=== PATIENT | male | born 1955 | race Caucasian/White ===

== ENCOUNTER 2016-12-09 13:50 | Inpatient (IN) | payer OTHER ==
[2016-12-09] VITALS (505 sets, daily range): BP systolic 108–166; BP diastolic 78–92; PULSE 70–71; TEMP 97.8–98.7; O2SAT 77–100
[~2016-12-09] VITALS: Ht 180.3 cm; Wt 142.7 kg
[~2016-12-09 13:50] MED LIST: ASPIRIN E.C. 8181 MG PO; BP MED; CORDARONE200 MG/TAB PO; COREG 25MG25 MG/TAB PO; COUMADIN5 MG PO; DILTIAZEM HCL60 M1 PO; FISH OIL CONC1000 MG PO; LIPITOR 40MG TA40 MG PO; LOPRESSOR 550 MG/TAB PO; LOPRESSOR100 MG PO; MICARDIS20 MG PO; NEURONTIN600 MG/TAB PO; NICODERM C21 MG/PATC TOP; PERCOCET 325 MG1 TA2 PO; PLAVIX 75MG TAB75 MG PO; PRADAXA 150MG150 MG PO; PRAVACHOL 40MG40 MG PO; PRINIVIL20 MG PO; PROVENTIL0.09 MG/A1 IH; TIKOSYN0.5 MG PO; VASOTEC 10M10 MG/TAB PO; ZEBETA10 MG PO; ZIAC 10/6.25M1 UDTAB PO
[2016-12-10] VITALS (1178 sets, daily range): BP systolic 101–145; BP diastolic 58–88; PULSE 69–84; TEMP 97.4–98.6; O2SAT 52–100
[2016-12-10 06:07] LABS: BASO % 0.1 % (0.0-2.0); GRAN # 12.8 (1.4-6.5); GRAN % 90.5 % (42.2-75.2); HEMATOCRIT 50.2 % (42.0-52.0); HEMOGLOBIN 17.3 g/dl (13.5-18.0); LYMPH # 1.1 (1.2-3.4); LYMPH % 7.5 % (20.0-51.0); MEAN CELL VOLUME 102 fl (80.0-100.0); MEAN CORPUSCULAR HEMOGLOBIN 35 pg (27.0-31.0); MEAN CORPUSCULAR HGB CONC 35 g/dl (33.0-37.0); MEAN PLATELET VOLUME 10.6 fl (7.4-10.4); MONO # 0.2 (0.1-0.6); MONO % 1.3 % (1.7-9.3); PLATELET COUNT 174 K/mm3 (130-400); RED BLOOD COUNT 4.92 M/mm3 (4.20-5.60); REDCELL DISTRIBUTION WIDTH-CV 13.3 % (11.5-14.5); WHITE BLOOD COUNT 14.2 K/mm3 (4.8-10.8)
[2016-12-10 06:24] LABS: CALCIUM 9.5 mg/dL (8.4-10.2); CREATININE, serum 1.27 mg/dL (0.66-1.25); POTASSIUM 4.4 mmol/L (3.4-5.0)
[2016-12-10] MEDS ORDERED: LASIX 40MG TABL40 MG PO (15:52)
[2016-12-11] VITALS (589 sets, daily range): BP systolic 100–141; BP diastolic 58–100; PULSE 69–76; TEMP 97.4–98.1; O2SAT 68–100
[2016-12-11 07:01] LABS: BASO % 0.1 % (0.0-2.0); GRAN # 18.5 (1.4-6.5); GRAN % 92.3 % (42.2-75.2); LYMPH # 0.9 (1.2-3.4); LYMPH % 4.5 % (20.0-51.0); MEAN CELL VOLUME 103 fl (80.0-100.0); MEAN CORPUSCULAR HGB CONC 34 g/dl (33.0-37.0); MEAN PLATELET VOLUME 11.1 fl (7.4-10.4); MONO # 0.5 (0.1-0.6); MONO % 2.3 % (1.7-9.3); PLATELET COUNT 190 K/mm3 (130-400); RED BLOOD COUNT 5.21 M/mm3 (4.20-5.60); REDCELL DISTRIBUTION WIDTH-CV 13.4 % (11.5-14.5)
[2016-12-11 07:06] LABS: CALCIUM 9.3 mg/dL (8.4-10.2); CREATININE, serum 1.19 mg/dL (0.66-1.25)
[2016-12-11 07:08] LABS: HEMATOCRIT 53.5 % (42.0-52.0); HEMOGLOBIN 18.1 g/dl (13.5-18.0); MEAN CORPUSCULAR HEMOGLOBIN 35 pg (27.0-31.0)
[2016-12-11 07:18] LABS: TROPONIN-I 0.012 ng/mL (0.000-0.034)
[2016-12-11 12:36] LABS: ADD PATHOLOGY DIFF REVIEW NO
[2016-12-11 12:39] LABS: BAND 8 % (0-10); NEUTROPHILS 87 % (42.0-75.2); PLATELET ESTIMATE NORMAL (NORMAL); TOTAL CELLS COUNTED 100
[2016-12-12] VITALS (7 sets, daily range): BP systolic 92–136; BP diastolic 53–70; PULSE 65–84; TEMP 97.5–98.4
[2016-12-12 07:51] LABS: BASO % 0.1 % (0.0-2.0); GRAN # 14.5 (1.4-6.5); HEMATOCRIT 50.9 % (42.0-52.0); HEMOGLOBIN 16.7 g/dl (13.5-18.0); LYMPH # 0.7 (1.2-3.4); LYMPH % 4.4 % (20.0-51.0); MEAN CELL VOLUME 104 fl (80.0-100.0); MEAN CORPUSCULAR HEMOGLOBIN 34 pg (27.0-31.0); MEAN CORPUSCULAR HGB CONC 33 g/dl (33.0-37.0); MEAN PLATELET VOLUME 10.9 fl (7.4-10.4); MONO # 0.4 (0.1-0.6); MONO % 2.5 % (1.7-9.3); PLATELET COUNT 175 K/mm3 (130-400); RED BLOOD COUNT 4.89 M/mm3 (4.20-5.60); REDCELL DISTRIBUTION WIDTH-CV 13.5 % (11.5-14.5); WHITE BLOOD COUNT 15.8 K/mm3 (4.8-10.8)
[2016-12-12 08:08] LABS: CALCIUM 8.9 mg/dL (8.4-10.2); CREATININE, serum 1.34 mg/dL (0.66-1.25); POTASSIUM 3.7 mmol/L (3.4-5.0)
[2016-12-13 01:17] VITALS: BP 119/67; PULSE 73; TEMP 97.5
[2016-12-13 04:52] VITALS: BP 112/68; PULSE 71; TEMP 97.6
[2016-12-13 07:35] VITALS: BP 102/61; PULSE 72; TEMP 97.8
[2016-12-13 07:42] LABS: HEMATOCRIT 51.8 % (42.0-52.0); HEMOGLOBIN 17.4 g/dl (13.5-18.0); MEAN CELL VOLUME 102 fl (80.0-100.0); MEAN CORPUSCULAR HEMOGLOBIN 34 pg (27.0-31.0); MEAN CORPUSCULAR HGB CONC 34 g/dl (33.0-37.0); MEAN PLATELET VOLUME 11.2 fl (7.4-10.4); PLATELET COUNT 136 K/mm3 (130-400); RED BLOOD COUNT 5.07 M/mm3 (4.20-5.60); REDCELL DISTRIBUTION WIDTH-CV 13.4 % (11.5-14.5); WHITE BLOOD COUNT 15.1 K/mm3 (4.8-10.8)
[2016-12-13 07:49] LABS: CREATININE, serum 1.43 mg/dL (0.66-1.25); POTASSIUM 3.5 mmol/L (3.4-5.0)
[2016-12-13 08:10] LABS: ADD PATHOLOGY DIFF REVIEW NO
[2016-12-13 10:39] LABS: ARTERIAL BLD GAS O2 SATURATION 94.2 % (92-100); ARTERIAL BLD GAS TCO2 CT 33.4; ARTERIAL BLOOD GAS BASE EXCESS 5.4 (-2-2); ARTERIAL BLOOD GAS HCO3 31.8 meq/L (22-26); ARTERIAL BLOOD GAS PHT 7.41 C (7.35-7.45); ARTERIAL BLOOD GAS PO2 74.8 mmHg (80-100); ARTERIAL BLOOD GAS PO2T 74.8 (80-100); ARTERIAL BLOOD GAS pH 7.41 (7.35-7.45); OXYHEMOGLOBIN 92.9 %
[2016-12-13 10:41] LABS: ALLEN TEST YES; ALLENS TEST RESULT PASS; ATS? YES
[2016-12-13 11:25] LABS: BAND 8 % (0-10); NEUTROPHILS 83 % (42.0-75.2); PLATELET ESTIMATE NORMAL (NORMAL); TOTAL CELLS COUNTED 100
[2016-12-13 13:38] VITALS: BP 118/64; PULSE 72; TEMP 97.9
[2016-12-13 15:15] VITALS: BP 92/49; PULSE 77; TEMP 98.6
[2016-12-13 21:36] VITALS: BP 142/65; PULSE 72; TEMP 97.5
[2016-12-14] VITALS (13 sets, daily range): BP systolic 03–142; BP diastolic 64–100; PULSE 40–89; TEMP 97.5–98.5
[2016-12-14 08:09] LABS: HEMATOCRIT 50.3 % (42.0-52.0); HEMOGLOBIN 17.1 g/dl (13.5-18.0); MEAN CELL VOLUME 103 fl (80.0-100.0); MEAN CORPUSCULAR HEMOGLOBIN 35 pg (27.0-31.0); MEAN CORPUSCULAR HGB CONC 34 g/dl (33.0-37.0); MEAN PLATELET VOLUME 10.9 fl (7.4-10.4); PLATELET COUNT 150 K/mm3 (130-400); RED BLOOD COUNT 4.88 M/mm3 (4.20-5.60); REDCELL DISTRIBUTION WIDTH-CV 13.2 % (11.5-14.5); WHITE BLOOD COUNT 13.8 K/mm3 (4.8-10.8)
[2016-12-14 08:26] LABS: ADD PATHOLOGY DIFF REVIEW NO; POTASSIUM 3.7 mmol/L (3.4-5.0)
[2016-12-14 08:27] LABS: INR 1.3 (0.8-3.0); PROTHROMBIN TIME 14.1 SECONDS (9.7-12.8)
[2016-12-14 08:40] LABS: CREATININE, serum 1.3 mg/dL (0.66-1.25)
[2016-12-14 10:36] LABS: ANISOCYTOSIS 1+; BAND 10 % (0-10); NEUTROPHILS 83 % (42.0-75.2); TOTAL CELLS COUNTED 100
[2016-12-14 10:37] LABS: PLATELET ESTIMATE NORMAL (NORMAL)
[2016-12-15 00:10] VITALS: BP 114/56; PULSE 70; TEMP 97.7
[2016-12-15 07:25] LABS: BASO % 0.1 % (0.0-2.0); GRAN # 13.3 (1.4-6.5); GRAN % 87.4 % (42.2-75.2); HEMATOCRIT 48.7 % (42.0-52.0); HEMOGLOBIN 16.1 g/dl (13.5-18.0); LYMPH % 6.3 % (20.0-51.0); MEAN CELL VOLUME 104 fl (80.0-100.0); MEAN CORPUSCULAR HEMOGLOBIN 35 pg (27.0-31.0); MEAN CORPUSCULAR HGB CONC 33 g/dl (33.0-37.0); MEAN PLATELET VOLUME 10.8 fl (7.4-10.4); MONO # 0.8 (0.1-0.6); MONO % 5.5 % (1.7-9.3); PLATELET COUNT 145 K/mm3 (130-400); RED BLOOD COUNT 4.67 M/mm3 (4.20-5.60); REDCELL DISTRIBUTION WIDTH-CV 13.1 % (11.5-14.5); WHITE BLOOD COUNT 15.2 K/mm3 (4.8-10.8)
[2016-12-15 07:32] VITALS: BP 103/59; PULSE 70; TEMP 97.7
[2016-12-15 08:02] LABS: CALCIUM 8.9 mg/dL (8.4-10.2); CREATININE, serum 1.26 mg/dL (0.66-1.25); POTASSIUM 3.9 mmol/L (3.4-5.0)
[2016-12-15 11:19] VITALS: BP 124/55; PULSE 70; TEMP 98.2
[2016-12-15 16:15] VITALS: BP 126/61; PULSE 72; TEMP 98.4
[2016-12-15] MEDS ORDERED: ZANTAC 150MG T150 MG PO (18:11)
[2016-12-15] MEDS ORDERED: LASIX 40MG TABL40 MG PO (18:12)
== END 2016-12-15 18:56 | disposition home or self-care (01) | DRG 292 ==
LOC: IMCU 13:50 → MEDICAL 12-11 14:00
PROVIDERS: Family Medicine; Internal Medicine; Internal Medicine Cardiovascular Disease; Internal Medicine Pulmonary Disease
PROC: 5A2204Z Restoration of Cardiac Rhythm, Single (ICD-10-PCS; principal; 2016-12-14)
DX: I11.0 Hypertensive heart disease with heart failure (principal); Z68.41 Body mass index [BMI] 40.0-44.9, adult; J44.1 Chronic obstructive pulmonary disease with (acute) exacerbation; I50.23 Acute on chronic systolic (congestive) heart failure; E66.01 Morbid (severe) obesity due to excess calories; I27.81 Cor pulmonale (chronic); I48.0 Paroxysmal atrial fibrillation; I16.0 Hypertensive urgency; F17.210 Nicotine dependence, cigarettes, uncomplicated; K21.9 Gastro-esophageal reflux disease without esophagitis; J01.90 Acute sinusitis, unspecified; Z91.14 Patient's other noncompliance with medication regimen
CPT/HCPCS: 99223-AI; 99232-AI; 99233-AI; 99239; J1940; J2704; J2930; J7030; J7512

== ENCOUNTER → 2017-02-11 | Outpatient (CLI) | payer OTHER ==
[~2017-02-11] MED LIST changes: +LASIX 40MG TABL40 MG PO; +ZANTAC 150MG T150 MG PO
== END ==
LOC: MHCPAIN 10:51
DX: G89.29 Other chronic pain (principal); M47.817 Spondylosis without myelopathy or radiculopathy, lumbosacral region; M53.3 Sacrococcygeal disorders, not elsewhere classified; F17.210 Nicotine dependence, cigarettes, uncomplicated
CPT/HCPCS: G0463

== ENCOUNTER → 2017-02-21 | Outpatient (CLI) | payer OTHER | LOC: MHCPAIN 08:44 | DX: M47.817 Spondylosis without myelopathy or radiculopathy, lumbosacral region (principal) | CPT/HCPCS: J1040; Q9967 ==

== ENCOUNTER → 2017-04-30 | Outpatient (CLI) | payer OTHER ==
[~2017-04-30] MED LIST changes: +ALDACTONE50 MG PO; +AMOXICILLIN 8751 TAB PO; +COMBIRESP IH; +COREG 6.256.25 MG/TA PO; +DEMADEX 20MG20 M1 PO; +ELIQUIS 5MG PO; +FLOVENT 110MCG7.9 GM IH; +LEVAQUIN 750MG750 M1 PO; +NICODERM C21 MG/PATC TD; +NITROSTAT0.4 MG/TAB SL; +NORCO 325 MG-51 TAB PO; +NORVASC 5MG5 MG/TAB PO; +NORVASC2.5 MG PO; +PREDNISONE10 MG PO; +PREDNISONE20 MG PO; +PROTONIX 40MG T40 MG PO; +RT SPIRIVA18 MCG IH
== END ==
LOC: MHCPAIN 10:12
DX: G89.29 Other chronic pain (principal); M47.817 Spondylosis without myelopathy or radiculopathy, lumbosacral region; M53.3 Sacrococcygeal disorders, not elsewhere classified; F17.210 Nicotine dependence, cigarettes, uncomplicated
CPT/HCPCS: G0463

== ENCOUNTER → 2017-06-05 | Outpatient (CLI) | payer OTHER ==
[~2017-06-05] MED LIST changes: -ALDACTONE50 MG PO; -AMOXICILLIN 8751 TAB PO; -COMBIRESP IH; -COREG 6.256.25 MG/TA PO; -DEMADEX 20MG20 M1 PO; -ELIQUIS 5MG PO; -FLOVENT 110MCG7.9 GM IH; -LEVAQUIN 750MG750 M1 PO; -NICODERM C21 MG/PATC TD; -NITROSTAT0.4 MG/TAB SL; -NORCO 325 MG-51 TAB PO; -NORVASC 5MG5 MG/TAB PO; -NORVASC2.5 MG PO; -PREDNISONE10 MG PO; -PREDNISONE20 MG PO; -PROTONIX 40MG T40 MG PO; -RT SPIRIVA18 MCG IH
== END ==
LOC: MHCPAIN 12:55
DX: G89.29 Other chronic pain (principal); M47.27 Other spondylosis with radiculopathy, lumbosacral region; F17.210 Nicotine dependence, cigarettes, uncomplicated
CPT/HCPCS: G0463

== ENCOUNTER → 2017-07-23 | Outpatient (CLI) | payer OTHER ==
[~2017-07-23] MED LIST changes: +DEMADEX 20MG20 M1 PO; +NORVASC 5MG5 MG/TAB PO
== END ==
LOC: MHCPAIN 13:47
DX: G89.29 Other chronic pain (principal); M47.27 Other spondylosis with radiculopathy, lumbosacral region; F17.210 Nicotine dependence, cigarettes, uncomplicated
CPT/HCPCS: G0463

== ENCOUNTER 2017-10-27 18:59 | Inpatient (IN) | payer OTHER ==
[2017-10-27] VITALS (172 sets, daily range): BP systolic 131; BP diastolic 70; PULSE 83; TEMP 97.7; O2SAT 79–99
[~2017-10-27] VITALS: Ht 180.3 cm; Wt 138.3 kg
[2017-10-27 23:33] LABS: PH 6 (5-8); SQUAMOUS EPITHELIAL None Seen /hpf; URINE APPEARANCE Clear; URINE BACTERIA None Seen /hpf; URINE BILIRUBIN Negative (NEGATIVE); URINE BLOOD 1+ (NEGATIVE); URINE COLOR Yellow; URINE GLUCOSE Negative (NEGATIVE); URINE KETONE Negative (NEGATIVE); URINE LEUKOCYTE ESTERASE Negative (NEGATIVE); URINE NITRATE Negative (NEGATIVE); URINE PROTEIN(semi-quant) 1+ (NEGATIVE); URINE RBC 0-2 /hpf; URINE UROBILINOGEN >=4.0 mg/dL (NEGATIVE)
[2017-10-27 23:38] LABS: COLLECTION METHOD CLEAN CATCH
[2017-10-28] VITALS (1260 sets, daily range): BP systolic 112–146; BP diastolic 72–91; PULSE 69–71; TEMP 97–98.8; O2SAT 63–100
[2017-10-28] MEDS ORDERED: LASIX 40MG TABL40 MG PO (03:57)
[2017-10-28 05:41] LABS: MEAN CELL VOLUME 101 fl (80.0-100.0); MEAN CORPUSCULAR HGB CONC 33 g/dl (33.0-37.0); MEAN PLATELET VOLUME 10.4 fl (7.4-10.4); PLATELET COUNT 181 K/mm3 (130-400); RED BLOOD COUNT 5.46 M/mm3 (4.20-5.60)
[2017-10-28 05:52] LABS: HEMATOCRIT 55.3 % (42.0-52.0); HEMOGLOBIN 18.1 g/dl (13.5-18.0); MEAN CORPUSCULAR HEMOGLOBIN 33 pg (27.0-31.0)
[2017-10-28 05:58] LABS: CALCIUM 8.5 mg/dL (8.4-10.2); CREATININE, serum 1.15 mg/dL (0.66-1.25); POTASSIUM 4.1 mmol/L (3.4-5.0)
[2017-10-28 06:12] LABS: ANISOCYTOSIS 1+; BAND 3 % (0-10); LYMPHOCYTE 13 % (20.0-51.0); NEUTROPHILS 84 % (42.0-75.2); PLATELET ESTIMATE NORMAL (NORMAL)
[2017-10-28 10:01] LABS: ARTERIAL BLD GAS O2 SATURATION 92.8 % (92-100); ARTERIAL BLD GAS TCO2 CT 33.3; ARTERIAL BLOOD GAS BASE EXCESS 5.4 (-2-2); ARTERIAL BLOOD GAS HCO3 31.7 meq/L (22-26); ARTERIAL BLOOD GAS PCO2 50.8 mmHg (35-45); ARTERIAL BLOOD GAS PO2 62.6 mmHg (80-100); ARTERIAL BLOOD GAS pH 7.41 (7.35-7.45)
[2017-10-28 10:55] LABS: C-REACTIVE PROTEIN 4.1 mg/dL (0.0-0.9)
[2017-10-29] VITALS (905 sets, daily range): BP systolic 100–147; BP diastolic 63–88; PULSE 69–80; TEMP 97.5–98.2; O2SAT 22–100
[2017-10-29 06:10] LABS: BASO % 0.2 % (0.0-2.0); GRAN # 15.4 (1.4-6.5); GRAN % 88.2 % (42.2-75.2); HEMOGLOBIN 17.2 g/dl (13.5-18.0); LYMPH # 1.3 (1.2-3.4); LYMPH % 7.4 % (20.0-51.0); MEAN CELL VOLUME 101 fl (80.0-100.0); MEAN CORPUSCULAR HEMOGLOBIN 33 pg (27.0-31.0); MEAN CORPUSCULAR HGB CONC 33 g/dl (33.0-37.0); MEAN PLATELET VOLUME 10.9 fl (7.4-10.4); MONO # 0.6 (0.1-0.6); MONO % 3.3 % (1.7-9.3); PLATELET COUNT 207 K/mm3 (130-400); RED BLOOD COUNT 5.23 M/mm3 (4.20-5.60); REDCELL DISTRIBUTION WIDTH-CV 12.9 % (11.5-14.5)
[2017-10-29 06:21] LABS: HEMATOCRIT 52.8 % (42.0-52.0)
[2017-10-29 06:26] LABS: CALCIUM 8.5 mg/dL (8.4-10.2); CREATININE, serum 1.13 mg/dL (0.66-1.25)
[2017-10-30] VITALS (7 sets, daily range): BP systolic 105–136; BP diastolic 62–81; PULSE 67–71; TEMP 97.2–98.9
[2017-10-31] VITALS (10 sets, daily range): BP systolic 108–133; BP diastolic 61–77; PULSE 69–81; TEMP 96.7–98.5
[2017-10-31 06:59] LABS: BASO % 0.1 % (0.0-2.0); GRAN # 11.9 (1.4-6.5); HEMOGLOBIN 17.2 g/dl (13.5-18.0); INR 1.2 (0.8-3.0); LYMPH # 1.5 (1.2-3.4); LYMPH % 10.1 % (20.0-51.0); MEAN CELL VOLUME 103 fl (80.0-100.0); MEAN CORPUSCULAR HEMOGLOBIN 33 pg (27.0-31.0); MEAN CORPUSCULAR HGB CONC 32 g/dl (33.0-37.0); MONO % 6.8 % (1.7-9.3); PLATELET COUNT 195 K/mm3 (130-400); PROTHROMBIN TIME 14.2 SECONDS (9.7-12.8); RED BLOOD COUNT 5.21 M/mm3 (4.20-5.60); REDCELL DISTRIBUTION WIDTH-CV 12.9 % (11.5-14.5)
[2017-10-31 07:01] LABS: HEMATOCRIT 53.5 % (42.0-52.0)
[2017-10-31 07:02] LABS: CALCIUM 8.1 mg/dL (8.4-10.2); CREATININE, serum 1.08 mg/dL (0.66-1.25); POTASSIUM 3.5 mmol/L (3.4-5.0)
[2017-10-31] MEDS ORDERED: CORDARONE200 MG/TAB PO (13:47)
[2017-10-31] MEDS ORDERED: ELIQUIS 5MG PO (13:47)
[2017-10-31] MEDS ORDERED: COREG 6.256.25 MG/TA PO (13:49)
[2017-10-31] MEDS ORDERED: NITROSTAT0.4 MG/TAB SL (13:49)
[2017-10-31] MEDS ORDERED: FLOVENT 110MCG7.9 GM IH (13:49)
[2017-10-31] MEDS ORDERED: COMBIRESP IH (13:57)
[2017-10-31] MEDS ORDERED: PREDNISONE20 MG PO (13:58)
[2017-10-31] MEDS ORDERED: PROTONIX 40MG T40 MG PO (13:58)
[2017-10-31] MEDS ORDERED: NICODERM C21 MG/PATC TD (13:59)
[2017-10-31] MEDS ORDERED: RT SPIRIVA18 MCG IH (14:01)
[2017-10-31] MEDS ORDERED: LIPITOR 40MG TA40 MG PO (14:08)
== END 2017-10-31 16:18 | disposition home or self-care (01) | DRG 189 ==
LOC: ICU 18:59 → MEDICAL 20:00 → ICU 20:00 → MEDICAL 10-29 15:55
PROVIDERS: Internal Medicine Pulmonary Disease; Nurse Practitioner
PROC: 5A2204Z Restoration of Cardiac Rhythm, Single (ICD-10-PCS; principal; 2017-10-31)
DX: J96.02 Acute respiratory failure with hypercapnia (principal); J18.9 Pneumonia, unspecified organism; J44.1 Chronic obstructive pulmonary disease with (acute) exacerbation; E66.2 Morbid (severe) obesity with alveolar hypoventilation; Z68.41 Body mass index [BMI] 40.0-44.9, adult; J96.01 Acute respiratory failure with hypoxia; K21.9 Gastro-esophageal reflux disease without esophagitis; I48.0 Paroxysmal atrial fibrillation; R73.03 Prediabetes; I11.0 Hypertensive heart disease with heart failure; I50.9 Heart failure, unspecified; F17.210 Nicotine dependence, cigarettes, uncomplicated; Z95.0 Presence of cardiac pacemaker; Z91.14 Patient's other noncompliance with medication regimen
CPT/HCPCS: 99223-AI; 99231-AI; 99233-AI; 99239; C9113; G9654; J0696; J1650; J1940; J2704; J2920; J2930; J3010; J7512

== ENCOUNTER 2017-11-01 13:15 | Inpatient (IN) | payer OTHER ==
[~2017-11-01] VITALS: Ht 180.3 cm; Wt 142.9 kg
[2017-11-01] VITALS (153 sets, daily range): BP systolic 135–142; BP diastolic 60–77; PULSE 69–91; TEMP 97.5–98.3; O2SAT 69–100
[~2017-11-01 13:15] MED LIST changes: +COMBIRESP IH; +COREG 6.256.25 MG/TA PO; +ELIQUIS 5MG PO; +FLOVENT 110MCG7.9 GM IH; +NICODERM C21 MG/PATC TD; +NITROSTAT0.4 MG/TAB SL; +PREDNISONE20 MG PO; +PROTONIX 40MG T40 MG PO; +RT SPIRIVA18 MCG IH
[2017-11-01 14:08] LABS: ARTERIAL BLD GAS O2 SATURATION 94.7 % (92-100); ARTERIAL BLD GAS TCO2 CT 42.5; ARTERIAL BLOOD GAS BASE EXCESS 11.2 (-2-2); ARTERIAL BLOOD GAS HCO3 40.3 meq/L (22-26); ARTERIAL BLOOD GAS PO2 73.3 mmHg (80-100); ARTERIAL BLOOD GAS pH 7.39 (7.35-7.45)
[2017-11-01 14:09] LABS: ARTERIAL BLOOD GAS PCO2 68.8 mmHg (35-45)
[2017-11-01 18:49] LABS: ARTERIAL BLD GAS O2 SATURATION 93.7 % (92-100); ARTERIAL BLD GAS TCO2 CT 41.8; ARTERIAL BLOOD GAS HCO3 39.7 meq/L (22-26); ARTERIAL BLOOD GAS PO2 69.1 mmHg (80-100); ARTERIAL BLOOD GAS pH 7.39 (7.35-7.45)
[2017-11-01 18:51] LABS: ARTERIAL BLOOD GAS PCO2 67.3 mmHg (35-45)
[2017-11-02] VITALS (712 sets, daily range): BP systolic 123–156; BP diastolic 57–89; PULSE 65–74; TEMP 96.8–98.7; O2SAT 55–100
[2017-11-02 06:17] LABS: BASO % 0.2 % (0.0-2.0); HEMOGLOBIN 17.1 g/dl (13.5-18.0); LYMPH # 0.8 (1.2-3.4); LYMPH % 6.1 % (20.0-51.0); MEAN CELL VOLUME 101 fl (80.0-100.0); MEAN CORPUSCULAR HEMOGLOBIN 33 pg (27.0-31.0); MEAN CORPUSCULAR HGB CONC 33 g/dl (33.0-37.0); MEAN PLATELET VOLUME 10.6 fl (7.4-10.4); MONO # 0.3 (0.1-0.6); MONO % 2.6 % (1.7-9.3); PLATELET COUNT 176 K/mm3 (130-400); RED BLOOD COUNT 5.18 M/mm3 (4.20-5.60); REDCELL DISTRIBUTION WIDTH-CV 12.8 % (11.5-14.5)
[2017-11-02 06:19] LABS: HEMATOCRIT 52.5 % (42.0-52.0)
[2017-11-02 06:26] LABS: CALCIUM 8.4 mg/dL (8.4-10.2); CREATININE, serum 0.86 mg/dL (0.66-1.25); MAGNESIUM 2.4 mg/dL (1.6-2.3); PHOSPHOROUS 2.7 mg/dL (2.5-4.5); POTASSIUM 4.5 mmol/L (3.4-5.0)
[2017-11-03 05:26] VITALS: BP 123/63; PULSE 69; TEMP 98.5
[2017-11-03 07:09] LABS: HEMOGLOBIN 16.9 g/dl (13.5-18.0); MEAN CELL VOLUME 103 fl (80.0-100.0); MEAN CORPUSCULAR HEMOGLOBIN 33 pg (27.0-31.0); MEAN CORPUSCULAR HGB CONC 32 g/dl (33.0-37.0); PLATELET COUNT 200 K/mm3 (130-400); RED BLOOD COUNT 5.11 M/mm3 (4.20-5.60); REDCELL DISTRIBUTION WIDTH-CV 12.7 % (11.5-14.5)
[2017-11-03 07:13] LABS: HEMATOCRIT 52.5 % (42.0-52.0)
[2017-11-03 07:18] LABS: CALCIUM 8.7 mg/dL (8.4-10.2); CREATININE, serum 0.88 mg/dL (0.66-1.25); POTASSIUM 4.1 mmol/L (3.4-5.0)
[2017-11-03 07:25] VITALS: BP 146/60; PULSE 70; TEMP 98
[2017-11-03 07:51] LABS: BAND 9 % (0-10); LYMPHOCYTE 9 % (20.0-51.0); METAMYELOCYTE 1 % (0-0); NEUTROPHILS 80 % (42.0-75.2); PLATELET ESTIMATE NORMAL (NORMAL)
[2017-11-03 07:52] LABS: HYPOCHROMIA 1+; STOMATOCYTE 1+
[2017-11-03 11:40] VITALS: BP 124/63; PULSE 70; TEMP 98.4
[2017-11-03 13:16] VITALS: BP 124/63; PULSE 70; TEMP 98.4
[2017-11-03 15:37] VITALS: BP 147/70; PULSE 72; TEMP 98
[2017-11-03 19:59] VITALS: BP 145/67; PULSE 74; TEMP 97.9
[2017-11-04] VITALS (7 sets, daily range): BP systolic 139–155; BP diastolic 71–86; PULSE 70–80; TEMP 97.5–98.4
[2017-11-04 06:29] LABS: HEMOGLOBIN 17.1 g/dl (13.5-18.0); MEAN CELL VOLUME 103 fl (80.0-100.0); MEAN CORPUSCULAR HEMOGLOBIN 33 pg (27.0-31.0); MEAN CORPUSCULAR HGB CONC 32 g/dl (33.0-37.0); PLATELET COUNT 217 K/mm3 (130-400); RED BLOOD COUNT 5.18 M/mm3 (4.20-5.60); REDCELL DISTRIBUTION WIDTH-CV 12.9 % (11.5-14.5)
[2017-11-04 06:34] LABS: HEMATOCRIT 53.4 % (42.0-52.0)
[2017-11-04 06:59] LABS: CALCIUM 8.6 mg/dL (8.4-10.2); CREATININE, serum 0.9 mg/dL (0.66-1.25); POTASSIUM 4.5 mmol/L (3.4-5.0)
[2017-11-04 07:37] LABS: BAND 8 % (0-10); LYMPHOCYTE 9 % (20.0-51.0); NEUTROPHILS 82 % (42.0-75.2)
[2017-11-04 07:40] LABS: PLATELET ESTIMATE NORMAL (NORMAL)
[2017-11-04] MEDS ORDERED: LEVAQUIN 750MG750 M1 PO (14:08)
[2017-11-04] MEDS ORDERED: PREDNISONE10 MG PO (14:12)
[2017-11-05 05:16] VITALS: BP 133/71; PULSE 73; TEMP 97.7
[2017-11-05 06:30] LABS: BASO % 0.2 % (0.0-2.0); GRAN # 15.5 (1.4-6.5); GRAN % 84.7 % (42.2-75.2); HEMOGLOBIN 17.2 g/dl (13.5-18.0); LYMPH # 1.4 (1.2-3.4); LYMPH % 7.8 % (20.0-51.0); MEAN CELL VOLUME 102 fl (80.0-100.0); MEAN CORPUSCULAR HEMOGLOBIN 33 pg (27.0-31.0); MEAN CORPUSCULAR HGB CONC 32 g/dl (33.0-37.0); MEAN PLATELET VOLUME 10.8 fl (7.4-10.4); MONO # 1.1 (0.1-0.6); PLATELET COUNT 227 K/mm3 (130-400); RED BLOOD COUNT 5.22 M/mm3 (4.20-5.60); REDCELL DISTRIBUTION WIDTH-CV 12.9 % (11.5-14.5)
[2017-11-05 06:32] LABS: HEMATOCRIT 53.3 % (42.0-52.0)
[2017-11-05 06:52] LABS: CALCIUM 8.7 mg/dL (8.4-10.2); CREATININE, serum 1.02 mg/dL (0.66-1.25); POTASSIUM 4.4 mmol/L (3.4-5.0)
[2017-11-05 08:29] VITALS: BP 113/57; PULSE 71; TEMP 97.7
[2017-11-05 11:27] VITALS: BP 136/77; PULSE 70; TEMP 97.6
== END 2017-11-05 17:45 | disposition home or self-care (01) | DRG 189 ==
LOC: MEDICAL 13:15 → ICU 20:26 → MEDICAL 11-02 12:25
PROVIDERS: Family Medicine; Internal Medicine Pulmonary Disease; Nurse Practitioner Family; Physician Assistant
DX: J96.02 Acute respiratory failure with hypercapnia (principal); J18.9 Pneumonia, unspecified organism; J44.1 Chronic obstructive pulmonary disease with (acute) exacerbation; J90 Pleural effusion, not elsewhere classified; Z68.41 Body mass index [BMI] 40.0-44.9, adult; J96.01 Acute respiratory failure with hypoxia; D75.1 Secondary polycythemia; I48.91 Unspecified atrial fibrillation; F17.210 Nicotine dependence, cigarettes, uncomplicated; K21.9 Gastro-esophageal reflux disease without esophagitis; R73.03 Prediabetes; I50.9 Heart failure, unspecified; G47.33 Obstructive sleep apnea (adult) (pediatric); E66.01 Morbid (severe) obesity due to excess calories; Z91.19 Patient's noncompliance with other medical treatment and regimen
CPT/HCPCS: 99222-AI; 99232-AI; 99233-AI; 99239; J1815; J2920; J2930; J7512

== ENCOUNTER 2018-02-10 20:41 | Inpatient (IN) | payer OTHER ==
[~2018-02-10] VITALS: Ht 180.3 cm; Wt 140.6 kg
[~2018-02-10 20:41] MED LIST changes: +LEVAQUIN 750MG750 M1 PO; +PREDNISONE10 MG PO
[2018-02-10 22:04] VITALS: BP 151/85; PULSE 73
[2018-02-10 23:59] VITALS: BP 147/70; PULSE 71
[2018-02-11 03:49] VITALS: BP 132/66; PULSE 71; TEMP 97.5
[2018-02-11 08:04] VITALS: BP 130/53; PULSE 70; TEMP 97.6
[2018-02-11 11:45] VITALS: BP 123/61; PULSE 70; TEMP 97.6
[2018-02-11 13:31] LABS: HEMATOCRIT 48.9 % (42.0-52.0); HEMOGLOBIN 16.5 g/dl (13.5-18.0); MEAN CELL VOLUME 99 fl (80.0-100.0); MEAN CORPUSCULAR HEMOGLOBIN 34 pg (27.0-31.0); MEAN CORPUSCULAR HGB CONC 34 g/dl (33.0-37.0); MEAN PLATELET VOLUME 10.6 fl (7.4-10.4); PLATELET COUNT 194 K/mm3 (130-400); RED BLOOD COUNT 4.93 M/mm3 (4.20-5.60); REDCELL DISTRIBUTION WIDTH-CV 13.3 % (11.5-14.5)
[2018-02-11 13:48] LABS: CALCIUM 8.6 mg/dL (8.4-10.2); CREATININE, serum 1.11 mg/dL (0.66-1.25); POTASSIUM 3.8 mmol/L (3.4-5.0)
[2018-02-11 13:54] LABS: BAND 7 % (0-10); LYMPHOCYTE 23 % (20.0-51.0); NEUTROPHILS 70 % (42.0-75.2)
[2018-02-11 13:57] LABS: PLATELET ESTIMATE NORMAL (NORMAL)
[2018-02-11 16:23] VITALS: BP 135/52; PULSE 72; TEMP 97.7
[2018-02-11 19:37] VITALS: BP 119/63; PULSE 71; TEMP 97.6
[2018-02-11 23:50] VITALS: BP 132/67; PULSE 71; TEMP 97.9
[2018-02-12] VITALS (8 sets, daily range): BP systolic 94–115; BP diastolic 45–61; PULSE 52–72; TEMP 97.5–98.5
[2018-02-12 10:33] LABS: HEMATOCRIT 51.5 % (42.0-52.0); HEMOGLOBIN 17.2 g/dl (13.5-18.0); MEAN CELL VOLUME 99 fl (80.0-100.0); MEAN CORPUSCULAR HEMOGLOBIN 33 pg (27.0-31.0); MEAN CORPUSCULAR HGB CONC 33 g/dl (33.0-37.0); MEAN PLATELET VOLUME 10.6 fl (7.4-10.4); PLATELET COUNT 185 K/mm3 (130-400); RED BLOOD COUNT 5.18 M/mm3 (4.20-5.60); REDCELL DISTRIBUTION WIDTH-CV 13.3 % (11.5-14.5)
[2018-02-12 10:42] LABS: CALCIUM 8.7 mg/dL (8.4-10.2); CREATININE, serum 1.2 mg/dL (0.66-1.25); POTASSIUM 4.3 mmol/L (3.4-5.0)
[2018-02-12 11:03] LABS: BAND 2 % (0-10); EOSINOPHIL 5 % (0-4); LYMPHOCYTE 28 % (20.0-51.0); NEUTROPHILS 58 % (42.0-75.2)
[2018-02-12 11:05] LABS: PLATELET ESTIMATE NORMAL (NORMAL)
[2018-02-13] VITALS (8 sets, daily range): BP systolic 92–126; BP diastolic 50–83; PULSE 54–72; TEMP 97.6–98.6
[2018-02-13 01:45] LABS: HEMATOCRIT 50.1 % (42.0-52.0); HEMOGLOBIN 16.5 g/dl (13.5-18.0); MEAN CELL VOLUME 101 fl (80.0-100.0); MEAN CORPUSCULAR HEMOGLOBIN 33 pg (27.0-31.0); MEAN CORPUSCULAR HGB CONC 33 g/dl (33.0-37.0); MEAN PLATELET VOLUME 10.7 fl (7.4-10.4); PLATELET COUNT 207 K/mm3 (130-400); RED BLOOD COUNT 4.97 M/mm3 (4.20-5.60); REDCELL DISTRIBUTION WIDTH-CV 13.4 % (11.5-14.5)
[2018-02-13 01:58] LABS: CALCIUM 7.2 mg/dL (8.4-10.2); CREATININE, serum 0.72 mg/dL (0.66-1.25); POTASSIUM 4.1 mmol/L (3.4-5.0)
[2018-02-13 02:35] LABS: BASOPHIL 1 % (0-2); EOSINOPHIL 5 % (0-4); LYMPHOCYTE 34 % (20.0-51.0); NEUTROPHILS 57 % (42.0-75.2); PLATELET ESTIMATE NORMAL (NORMAL)
[2018-02-14] VITALS (14 sets, daily range): BP systolic 101–141; BP diastolic 51–87; PULSE 69–78; TEMP 97.5–98.5
[2018-02-15 03:46] VITALS: BP 136/72; PULSE 70; TEMP 97.5
[2018-02-15 07:59] VITALS: BP 140/62; PULSE 71; TEMP 97.9
[2018-02-15 11:29] VITALS: BP 142/67; PULSE 70; TEMP 97.7
[2018-02-15 12:33] LABS: BASO # 0.1 (0.0-0.2); BASO % 0.3 % (0.0-2.0); GRAN # 18.4 (1.4-6.5); GRAN % 85.1 % (42.2-75.2); HEMATOCRIT 45.8 % (42.0-52.0); HEMOGLOBIN 15.3 g/dl (13.5-18.0); LYMPH # 1.7 (1.2-3.4); MEAN CELL VOLUME 100 fl (80.0-100.0); MEAN CORPUSCULAR HEMOGLOBIN 33 pg (27.0-31.0); MEAN CORPUSCULAR HGB CONC 33 g/dl (33.0-37.0); MEAN PLATELET VOLUME 10.7 fl (7.4-10.4); MONO # 1.3 (0.1-0.6); MONO % 5.8 % (1.7-9.3); PLATELET COUNT 218 K/mm3 (130-400); RED BLOOD COUNT 4.59 M/mm3 (4.20-5.60); REDCELL DISTRIBUTION WIDTH-CV 13.2 % (11.5-14.5)
[2018-02-15 12:44] LABS: CALCIUM 8.8 mg/dL (8.4-10.2); CREATININE, serum 1.21 mg/dL (0.66-1.25); POTASSIUM 4.9 mmol/L (3.4-5.0)
[2018-02-15 16:42] VITALS: BP 124/64; PULSE 70; TEMP 97.8
[2018-02-15 19:36] VITALS: BP 139/68; PULSE 71; TEMP 98.6
[2018-02-15 22:51] VITALS: BP 152/98; PULSE 72; TEMP 98.6
[2018-02-16 03:05] VITALS: BP 136/65; PULSE 70; TEMP 98.6
[2018-02-16 07:33] VITALS: BP 108/60; PULSE 71; TEMP 98.5
[2018-02-16 11:23] VITALS: BP 134/77; PULSE 71; TEMP 97.9
[2018-02-16 15:51] VITALS: BP 128/65; PULSE 71; TEMP 98.7
[2018-02-16 19:37] VITALS: BP 106/59; PULSE 70; TEMP 97.2
[2018-02-16 23:33] VITALS: BP 114/54; PULSE 70; TEMP 97.7
[2018-02-17 03:56] VITALS: BP 137/64; PULSE 69; TEMP 97.8
[2018-02-17 07:09] LABS: BASO # 0.1 (0.0-0.2); BASO % 0.5 % (0.0-2.0); EOS # 0.2 (0.0-0.7); EOS % 1.4 % (0-4.0); GRAN # 8.8 (1.4-6.5); GRAN % 65.8 % (42.2-75.2); HEMATOCRIT 48.5 % (42.0-52.0); HEMOGLOBIN 15.4 g/dl (13.5-18.0); LYMPH # 2.7 (1.2-3.4); LYMPH % 20.5 % (20.0-51.0); MEAN CELL VOLUME 103 fl (80.0-100.0); MEAN CORPUSCULAR HEMOGLOBIN 33 pg (27.0-31.0); MEAN CORPUSCULAR HGB CONC 32 g/dl (33.0-37.0); MEAN PLATELET VOLUME 10.6 fl (7.4-10.4); MONO # 1.5 (0.1-0.6); MONO % 10.9 % (1.7-9.3); PLATELET COUNT 219 K/mm3 (130-400); RED BLOOD COUNT 4.69 M/mm3 (4.20-5.60); REDCELL DISTRIBUTION WIDTH-CV 13.5 % (11.5-14.5)
[2018-02-17 07:23] LABS: CALCIUM 8.9 mg/dL (8.4-10.2); CREATININE, serum 1.45 mg/dL (0.66-1.25); POTASSIUM 4.2 mmol/L (3.4-5.0)
[2018-02-17 07:37] VITALS: BP 144/80; PULSE 70; TEMP 97.9
[2018-02-17 12:12] VITALS: BP 130/76; PULSE 71; TEMP 98.7
[2018-02-17 17:01] VITALS: BP 127/81; PULSE 73; TEMP 98.3
[2018-02-17 19:26] VITALS: BP 149/75; PULSE 72; TEMP 97.5
[2018-02-18 00:08] VITALS: BP 127/95; PULSE 75; TEMP 97.8
[2018-02-18 03:29] VITALS: BP 119/68; PULSE 71; TEMP 97.9
[2018-02-18 07:21] LABS: CALCIUM 8.8 mg/dL (8.4-10.2); CREATININE, serum 1.37 mg/dL (0.66-1.25); POTASSIUM 4.2 mmol/L (3.4-5.0)
[2018-02-18 07:29] LABS: BASO # 0.1 (0.0-0.2); BASO % 0.5 % (0.0-2.0); EOS # 0.3 (0.0-0.7); EOS % 2.1 % (0-4.0); GRAN # 8.5 (1.4-6.5); GRAN % 65.8 % (42.2-75.2); HEMATOCRIT 48.3 % (42.0-52.0); HEMOGLOBIN 15.6 g/dl (13.5-18.0); LYMPH # 2.6 (1.2-3.4); LYMPH % 20.2 % (20.0-51.0); MEAN CELL VOLUME 101 fl (80.0-100.0); MEAN CORPUSCULAR HEMOGLOBIN 33 pg (27.0-31.0); MEAN CORPUSCULAR HGB CONC 32 g/dl (33.0-37.0); MONO # 1.4 (0.1-0.6); MONO % 10.6 % (1.7-9.3); PLATELET COUNT 211 K/mm3 (130-400); REDCELL DISTRIBUTION WIDTH-CV 13.3 % (11.5-14.5)
[2018-02-18 07:37] VITALS: BP 118/59; PULSE 70; TEMP 97.6
[2018-02-18 11:44] VITALS: BP 101/56; PULSE 71; TEMP 97.6
[2018-02-18 16:44] VITALS: BP 111/53; PULSE 70; TEMP 98.4
[2018-02-18 20:18] VITALS: BP 117/67; PULSE 74; TEMP 98.1
[2018-02-19 00:07] VITALS: BP 140/54; PULSE 72; TEMP 98
[2018-02-19 04:02] VITALS: BP 145/62; PULSE 71; TEMP 97.7
[2018-02-19 06:33] LABS: BASO # 0.1 (0.0-0.2); BASO % 0.4 % (0.0-2.0); EOS # 0.3 (0.0-0.7); EOS % 2.3 % (0-4.0); HEMATOCRIT 46.1 % (42.0-52.0); HEMOGLOBIN 15.3 g/dl (13.5-18.0); LYMPH # 2.6 (1.2-3.4); LYMPH % 21.1 % (20.0-51.0); MEAN CELL VOLUME 99 fl (80.0-100.0); MEAN CORPUSCULAR HEMOGLOBIN 33 pg (27.0-31.0); MEAN CORPUSCULAR HGB CONC 33 g/dl (33.0-37.0); MEAN PLATELET VOLUME 10.8 fl (7.4-10.4); MONO # 1.3 (0.1-0.6); MONO % 10.6 % (1.7-9.3); PLATELET COUNT 210 K/mm3 (130-400); RED BLOOD COUNT 4.64 M/mm3 (4.20-5.60); REDCELL DISTRIBUTION WIDTH-CV 13.2 % (11.5-14.5)
[2018-02-19 06:49] LABS: CALCIUM 9.1 mg/dL (8.4-10.2); CREATININE, serum 1.61 mg/dL (0.66-1.25)
[2018-02-19 09:32] VITALS: BP 137/41; PULSE 76; TEMP 98.2
[2018-02-19 12:00] VITALS: BP 129/57; PULSE 69; TEMP 98.5
[2018-02-19 16:40] VITALS: BP 112/66; PULSE 73; TEMP 98.2
[2018-02-19 20:19] VITALS: BP 112/62; PULSE 70; TEMP 97.5
[2018-02-20 00:17] VITALS: BP 117/70; PULSE 69; TEMP 98.5
[2018-02-20 04:48] VITALS: BP 118/55; PULSE 70; TEMP 98.1
[2018-02-20 07:32] VITALS: BP 119/45; PULSE 71; TEMP 97.3
[2018-02-20 08:05] LABS: BASO # 0.1 (0.0-0.2); BASO % 0.6 % (0.0-2.0); EOS # 0.3 (0.0-0.7); EOS % 2.7 % (0-4.0); GRAN # 8.2 (1.4-6.5); GRAN % 65.6 % (42.2-75.2); HEMATOCRIT 46.4 % (42.0-52.0); HEMOGLOBIN 14.8 g/dl (13.5-18.0); LYMPH # 2.7 (1.2-3.4); LYMPH % 21.7 % (20.0-51.0); MEAN CELL VOLUME 102 fl (80.0-100.0); MEAN CORPUSCULAR HEMOGLOBIN 33 pg (27.0-31.0); MEAN CORPUSCULAR HGB CONC 32 g/dl (33.0-37.0); MEAN PLATELET VOLUME 10.4 fl (7.4-10.4); MONO # 1.1 (0.1-0.6); MONO % 8.8 % (1.7-9.3); PLATELET COUNT 205 K/mm3 (130-400); RED BLOOD COUNT 4.53 M/mm3 (4.20-5.60); REDCELL DISTRIBUTION WIDTH-CV 13.2 % (11.5-14.5)
[2018-02-20 08:14] LABS: CALCIUM 8.2 mg/dL (8.4-10.2); CREATININE, serum 1.23 mg/dL (0.66-1.25); POTASSIUM 3.7 mmol/L (3.4-5.0)
[2018-02-20] MEDS ORDERED: ALDACTONE50 MG PO (08:25)
[2018-02-20] MEDS ORDERED: NORVASC2.5 MG PO (08:25)
[2018-02-20] MEDS ORDERED: NORCO 325 MG-51 TAB PO (08:27)
[2018-02-20] MEDS ORDERED: AMOXICILLIN 8751 TAB PO (10:14)
== END 2018-02-20 15:00 | disposition home health service (06) | DRG 292 ==
LOC: MEDICAL 20:41
PROVIDERS: Hospitalist; Nurse Practitioner; Nurse Practitioner Family; Physician Assistant; Urology
PROC: 0V950ZZ Drainage of Scrotum, Open Approach (ICD-10-PCS; principal; 2018-02-14 09:00)
DX: I50.31 Acute diastolic (congestive) heart failure (principal); J90 Pleural effusion, not elsewhere classified; Z68.41 Body mass index [BMI] 40.0-44.9, adult; N49.2 Inflammatory disorders of scrotum; B96.89 Other specified bacterial agents as the cause of diseases classified elsewhere; J44.9 Chronic obstructive pulmonary disease, unspecified; I48.91 Unspecified atrial fibrillation; F17.210 Nicotine dependence, cigarettes, uncomplicated; K21.9 Gastro-esophageal reflux disease without esophagitis; I95.9 Hypotension, unspecified; Z95.0 Presence of cardiac pacemaker; E66.01 Morbid (severe) obesity due to excess calories; Z91.14 Patient's other noncompliance with medication regimen; I73.9 Peripheral vascular disease, unspecified
CPT/HCPCS: 99223-AI; 99232-AI; 99233-AI; 99239; A4314; C1751; C1894; C9113; G0378; G0379; J0690; J1100; J1580; J1940; J2270; J2370; J2405; J2543; J2704; J3010; J7050; J7120; Q9967

== ENCOUNTER 2019-09-29 11:48 | Inpatient (IN) | payer MEDICARE, OTHER ==
[~2019-09-29] VITALS: Ht 180.3 cm; Wt 139.7 kg
[~2019-09-29 11:48] MED LIST changes: +ALDACTONE50 MG PO; +AMOXICILLIN 8751 TAB PO; +NORCO 325 MG-51 TAB PO; +NORVASC2.5 MG PO
[2019-09-29 12:27] LABS: BASO % 0.3 % (0.0-2.0); EOS # 0.1 (0.0-0.7); EOS % 0.7 % (0-4.0); GRAN # 8.8 (1.4-6.5); GRAN % 68.6 % (42.2-75.2); HEMATOCRIT 46.8 % (42.0-52.0); HEMOGLOBIN 14.6 g/dl (13.5-18.0); LYMPH # 2.2 (1.2-3.4); LYMPH % 17.4 % (20.0-51.0); MEAN CELL VOLUME 101 fl (80.0-100.0); MEAN CORPUSCULAR HEMOGLOBIN 32 pg (27.0-31.0); MEAN CORPUSCULAR HGB CONC 31 g/dl (33.0-37.0); MONO % 8.1 % (1.7-9.3); PLATELET COUNT 201 K/mm3 (130-400); RED BLOOD COUNT 4.64 M/mm3 (4.20-5.60); REDCELL DISTRIBUTION WIDTH-CV 13.4 % (11.5-14.5)
[2019-09-29 12:40] LABS: ALBUMIN 3.3 gm/dL (3.5-5.0); BILIRUBIN,TOTAL 0.8 mg/dL (0.0-1.0); C-REACTIVE PROTEIN 5.5 mg/dL (0.0-0.9); CALCIUM 8.7 mg/dL (8.4-10.2); CREATININE, serum 1.22 (0.66-1.25); POTASSIUM 3.7 mmol/L (3.4-5.0)
[2019-09-29 12:49] LABS: TROPONIN-I 0.013 ng/mL (0.000-0.035)
[2019-09-29] MEDS ORDERED: NICODERM C21 MG/PATC TD (13:15)
[2019-09-29] MEDS ORDERED: DULCOLAX STOOL100 MG PO (13:15)
[2019-09-29] MEDS ORDERED: ZESTRIL 5MG5 MG PO (13:15)
[2019-09-29] MEDS ORDERED: THERA-M W/MINER1 TAB PO (13:17)
[2019-09-29] MEDS ORDERED: MUCINEX 60600 MG/TA1 PO (13:18)
[2019-09-29] MEDS ORDERED: TYLENOL 500MG500 MG PO (13:20)
[2019-09-29] MEDS ORDERED: ALBUTEROL SULFAT4 M1 PO (13:20)
[2019-09-29] MEDS ORDERED: KLONOPIN 1MG1 MG PO (13:21)
[2019-09-29] MEDS ORDERED: MYLANTA 150 ML150 M1 PO (13:22)
[2019-09-29 14:55] LABS: COLLECTION METHOD CLEAN CATCH
[2019-09-29 15:07] LABS: MUCOUS Present /lpf; PH 7 (5-8); SQUAMOUS EPITHELIAL 0-2 /hpf; URINE APPEARANCE Clear; URINE BACTERIA None Seen /hpf; URINE BILIRUBIN Negative (NEGATIVE); URINE BLOOD Negative (NEGATIVE); URINE COLOR Yellow; URINE GLUCOSE Negative (NEGATIVE); URINE KETONE Negative (NEGATIVE); URINE LEUKOCYTE ESTERASE Negative (NEGATIVE); URINE NITRATE Negative (NEGATIVE); URINE PROTEIN(semi-quant) Negative (NEGATIVE); URINE RBC 0-2 /hpf; URINE WBC 0-2 /hpf
[2019-09-29] MEDS ORDERED: PREDNISONE10 MG PO (15:18)
[2019-09-29] MEDS ORDERED: RT ADVAIR 228 DISKUS IH (15:25)
[2019-09-29] MEDS ORDERED: SPIRIVA RESPIMAT4 GM IH (15:25)
[2019-09-29] MEDS ORDERED: LIDODERM 5% PATC1 EA TP (15:26)
--- NOTE | 2019-09-29 15:30 | NUR ---
Pt arrived to room 309 at this time. He is A/O x4. His breathing is even and unlabored on 5L O2 via NC. Pt denies any increase in SOB. Pt currently reports pain to BLE and back, lidocaine patch on to back. Bilateral legs wrapped. See assessment for findings. Pt reports chronic N/T to bilateral feet. No needs at this time. POC discussed with patient no needs at this time. Call light within reach.
[2019-09-29 18:00] VITALS: BP 99/51; PULSE 69; TEMP 98.1
--- NOTE | 2019-09-29 19:30 | NUR ---
Shift assessment complete. Pt resting in bed, awake, a&o, cooperative c cares. C/o pain to BLE et back, denies other c/o. INT patent, bumex gtt initiated at this time. O2 per NC. Pt denies further needs. Call light in reach, will continue to monitor.
[2019-09-29 21:11] VITALS: BP 126/59; PULSE 71; TEMP 97.7
[2019-09-29 22:31] LABS: CALCIUM 8.6 mg/dL (8.4-10.2); CREATININE, serum 1.39 (0.66-1.25); POTASSIUM 4.1 mmol/L (3.4-5.0)
[2019-09-30 00:51] VITALS: BP 117/57; PULSE 70; TEMP 98.2
[2019-09-30 04:26] VITALS: BP 111/58; PULSE 63; TEMP 97.5
[2019-09-30 07:42] VITALS: BP 105/62; PULSE 69; TEMP 98.2
[2019-09-30 07:46] LABS: HEMOGLOBIN 15.1 g/dl (13.5-18.0); MEAN CELL VOLUME 100 fl (80.0-100.0); MEAN CORPUSCULAR HEMOGLOBIN 31 pg (27.0-31.0); MEAN CORPUSCULAR HGB CONC 32 g/dl (33.0-37.0); MEAN PLATELET VOLUME 11.5 fl (7.4-10.4); PLATELET COUNT 210 K/mm3 (130-400); RED BLOOD COUNT 4.81 M/mm3 (4.20-5.60); REDCELL DISTRIBUTION WIDTH-CV 13.3 % (11.5-14.5)
[2019-09-30 07:52] LABS: CALCIUM 8.7 mg/dL (8.4-10.2); CREATININE, serum 1.32 (0.66-1.25); MAGNESIUM 1.9 mg/dL (1.6-2.3); POTASSIUM 3.7 mmol/L (3.4-5.0)
[2019-09-30 08:32] LABS: BAND 7 % (0-10); EOSINOPHIL 2 % (0-4); LYMPHOCYTE 22 % (20.0-51.0); METAMYELOCYTE 1 % (0-0); NEUTROPHILS 61 % (42.0-75.2); PLATELET ESTIMATE NORMAL (NORMAL)
--- NOTE | 2019-09-30 08:52 | NUR ---
Pt awake and alert upon entry, no C/O pain currently, shift assessments complete, left Pt call light in reach, bed in lowest position.
[2019-09-30 12:00] VITALS: BP 107/51; PULSE 72; TEMP 97.6
--- NOTE | 2019-09-30 16:37 | NUR ---
Apron Trimmer met with patient to discuss discharge planning. Patient lives with his Annita (ph#[phone]) and son Joseph (ph#[phone]). Patient does not have a primary care physician and reports Dr. Cordero "kicked him out". Patient interested in setting up new PCP and SW provided list of primary care providers in [place]. Patient has home oxygen and reports he gets his oxygen "somewhere in [place]". Patient reports independence with ADLS and if he needs any assistance he has his help him. Patient does not have Advance Directives and is not interested in setting them up at this time. SW to continue to follow.
[2019-09-30 16:38] VITALS: BP 103/51; PULSE 70; TEMP 97.6
--- NOTE | 2019-09-30 18:23 | NUR ---
Pt rested in the room today, doing well with his fluid restriction, BLE red and swollen, Pt has C/O pain in BLE, has not requested PRN pain medications, VS have remained stable.
[2019-09-30 19:16] VITALS: BP 118/54; PULSE 69; TEMP 97.1
--- NOTE | 2019-09-30 20:00 | NUR ---
Received report from KIM Schmitz. Assesssment complete. Alert and oriented. C/O pain to BLE, rate 9/10, PRN pain meds administered. BLE edema 3+ noted, wrapped in CALI bandage. Tele monitor in place, leads checked. LH INT intact, flushed, dressing CDI. Meds administered. On 2LO2 NC, denies SOB. Needs attended too. Call light within reach.
[2019-10-01] VITALS (7 sets, daily range): BP systolic 103–129; BP diastolic 44–64; PULSE 67–93; TEMP 97.3–98.5
--- NOTE | 2019-10-01 05:49 | NUR ---
Pt c/o BLE pain, PRN pain meds given with little relief. Pt states his pain is tolerable at this time, rate 7-8/10. Instructed pt to keep his legs elevated on pillows when he lays down. Pt found to be sitting up at edge of bed throughout the night. Needs met. Call light within reach.
--- NOTE | 2019-10-01 06:59 | NUR ---
Report given to KIM Schmitz
--- NOTE | 2019-10-01 07:54 | NUR ---
Pt awake and alert upon entry sitting on edge of bed, has C/O pain in lower extremities, noted BLE edema with dependent rubor, shift assessments complete, left Pt call light in reach, bed in lowest position.
--- NOTE | 2019-10-01 08:59 | NUR ---
Patient to receive BP medication, current BP is 103/47. Clarified with primary nurse who requested to the medication to be given.
--- NOTE | 2019-10-01 09:48 | NUR ---
Contacted lab concerning draws this morning, Pt refused to let the farm laborer draw blood. K+ protocol could not be completed.
--- NOTE | 2019-10-01 09:49 | NUR ---
Removed patient's nicotine patch off the right tricep, placed the new nicotine patch on patient's rear left shoulder.
--- NOTE | 2019-10-01 10:37 | NUR ---
Bandage changed on lower left leg, cleaned wound site with guaze soaked in sterile water, covered wound with sterile non stick pad and overwrapped with suresh bandage.
[2019-10-01 12:03] LABS: HEMATOCRIT 45.5 % (42.0-52.0); HEMOGLOBIN 14.5 g/dl (13.5-18.0); MEAN CELL VOLUME 99 fl (80.0-100.0); MEAN CORPUSCULAR HEMOGLOBIN 32 pg (27.0-31.0); MEAN CORPUSCULAR HGB CONC 32 g/dl (33.0-37.0); MEAN PLATELET VOLUME 11.1 fl (7.4-10.4); PLATELET COUNT 223 K/mm3 (130-400); REDCELL DISTRIBUTION WIDTH-CV 13.4 % (11.5-14.5)
[2019-10-01 12:05] LABS: CALCIUM 8.7 mg/dL (8.4-10.2); CREATININE, serum 1.4 (0.66-1.25); POTASSIUM 4.1 mmol/L (3.4-5.0)
[2019-10-01 12:31] LABS: BAND 3 % (0-10); LYMPHOCYTE 22 % (20.0-51.0); NEUTROPHILS 70 % (42.0-75.2)
[2019-10-01 12:32] LABS: PLATELET ESTIMATE NORMAL (NORMAL)
--- NOTE | 2019-10-01 13:15 | NUR ---
Reported off to primary nurse. Patient in his room, sitting on side of bed while watching tv.
--- NOTE | 2019-10-01 13:39 | NUR ---
Primary nurse was assisted with [id number] patient care by [employer] student Sara Lo and [employer] instructor Estrella Drake RN-.
--- NOTE | 2019-10-01 18:01 | NUR ---
Pt resting in the room today, has had C/O pain in both lower extremities, medications given for relief. Pt asked several questions related to his lower leg edema, and pin, talked with Pt and answered questions. VS have remained stable.
--- NOTE | 2019-10-01 18:41 | NUR ---
Report given to KIM Zaragoza.
--- NOTE | 2019-10-01 20:00 | NUR ---
Report received from KIM Schmitz. Assessment complete. Alert and oriented. C/O pain to BLE, rate 7-8/10. PRN pain meds administered as requested. BLE with swelling, wrapped in CALI. Encouraged pt to keep feet elevated on pillow when laying in bed. Meds administered. On 2LO2 via NC. Denies SOB. INT to LH intact, flushed, dressing CDI. Tele monitor in place, leads checked. Urinal at bedside. Needs met. Call light within reach.
--- NOTE | 2019-10-02 01:46 | NUR ---
Pt awake sitting up on edge of bed watching tv. needs met. call light within reach.
[2019-10-02 02:54] VITALS: BP 121/58; PULSE 72; TEMP 97.6
--- NOTE | 2019-10-02 05:55 | NUR ---
Meds administered. Made no complaints during the night. Needs met. Call light within reach.
--- NOTE | 2019-10-02 06:48 | NUR ---
Report given to KIM Schmitz.
[2019-10-02 07:04] VITALS: BP 110/71; PULSE 71; TEMP 97.2
--- NOTE | 2019-10-02 07:30 | NUR ---
Pt friendly and in good spirits. Bed in lowest position. Call light within reach.
[2019-10-02 08:17] LABS: CREATININE, serum 1.32 (0.66-1.25)
[2019-10-02 08:20] LABS: HEMATOCRIT 45.5 % (42.0-52.0); HEMOGLOBIN 14.5 g/dl (13.5-18.0); MEAN CELL VOLUME 99 fl (80.0-100.0); MEAN CORPUSCULAR HEMOGLOBIN 32 pg (27.0-31.0); MEAN CORPUSCULAR HGB CONC 32 g/dl (33.0-37.0); MEAN PLATELET VOLUME 11.2 fl (7.4-10.4); PLATELET COUNT 206 K/mm3 (130-400); RED BLOOD COUNT 4.61 M/mm3 (4.20-5.60); REDCELL DISTRIBUTION WIDTH-CV 13.4 % (11.5-14.5)
[2019-10-02 09:05] LABS: BAND 4 % (0-10); LYMPHOCYTE 31 % (20.0-51.0); METAMYELOCYTE 1 % (0-0); NEUTROPHILS 62 % (42.0-75.2); PLATELET ESTIMATE NORMAL (NORMAL)
--- NOTE | 2019-10-02 09:22 | NUR ---
Reviewed Heart Failure Book with pt. Pt teaching for diet/activity/weight etc outlined in book. "My doctor does not help me at all. Look at my feet. He did nothing for me." Instructed pt concerning changing physician care if he is not satisfied. Pt changed topic and stated " he didn't cook-he usually went to [employer] with grandkids". Encouraged pt to chose the salads that [facility] offers vs other choices. Pt then again changed the topic- "how can I not drink what I want?" Spoke about fluid restrictions and chosing drinks at the beginning of the day-making a plan to stay within reasonable limit. Pt stated "I used to drink a 6 pack of beer every day." Also instructed pt concerning SOB/increased weight/feet swelling and to notify PCP of changes to get help early. Pt voiced understanding to the above but did find it difficult to feel empowered to carry through with decisions.
--- NOTE | 2019-10-02 11:25 | NUR ---
Transferred to hospice via EMS, report called to receiving nurse.
[2019-10-02 11:47] VITALS: BP 101/83; PULSE 71; TEMP 97.5
--- NOTE | 2019-10-02 13:47 | NUR ---
Primary nurse was assisted with [id number] patient care by [employer] student Naeem Pereira and [employer] instructor Estrella Drake RN-BC.
--- NOTE | 2019-10-02 15:58 | NUR ---
Floorman attended clinical rounds with the team. Patient reports prior to admission he had been at [facility] in [place] for about three days. Patient reports he does not want to go back there and wants to go home. PT to be ordered. JUNG contacted patient's and she confirmed patient does not want to return to [facility]. Patient's stated it's up to patient as to what the discharge plan is. JUNG contacted Jana at [facility] and faxed updates. JUNG spoke with BETNLEY Pacheco after evaluation and he is recommending home with home health as patient wishes to return home. JUNG met with patient who confirmed he did not want to return to SNF and is agreeable to Home Health. SW presented Medicare.gov list of agencies and patient selected [facility]. JUNG contacted Sean at [facility] and faxed referral. JUNG advised Sean patient to be set up with new PCP upon discharge as patient no longer sees Dr. Brand. JUNG followed up with patient who reports he wants to set up primary care with Dr. Neymar Jamil upon discharge. JUNG provided this update to community relations police lieutenant. JUNG contacted Jana at [facility] to update on discharge plan and report that patient does not plan to return to SNF. SW to continue to follow.
[2019-10-02 17:37] VITALS: BP 128/74; PULSE 60; TEMP 96.4
--- NOTE | 2019-10-02 19:28 | NUR ---
Pt rested in the room today, has C/O pin in bilat lower extremities, medications given for relief with good results, remains independent in the room, Pt showered this afternoon, VS have remained stable .
--- NOTE | 2019-10-02 19:30 | NUR ---
Report given to KIM Zaragoza.
[2019-10-02 19:54] VITALS: BP 110/66; PULSE 71; TEMP 97.5
--- NOTE | 2019-10-02 20:00 | NUR ---
Received report from KIM Schmitz. Assessment complete. Alert and oriented. at bedside. C/O BLE pain, rate 7/10, pt req pain med. BLE wrapped in CALI. With 3+ edema, redness, swelling. PRN hydrocodone administered. Scheduled meds administered. Tele monitor in place, leads checked. On 3LO2 via OR, denies SOB. Monitoring uop and fluid intake, urinal at bedside. Needs met. Call light within reach.
[2019-10-02 23:51] VITALS: BP 103/46; PULSE 69; TEMP 97
[2019-10-03] VITALS (9 sets, daily range): BP systolic 94–134; BP diastolic 48–104; PULSE 71–75; TEMP 97.4–98
[2019-10-03 06:22] LABS: BASO # 0.1 (0.0-0.2); BASO % 0.5 % (0.0-2.0); EOS % 0.1 % (0-4.0); GRAN % 70.7 % (42.2-75.2); HEMATOCRIT 47.5 % (42.0-52.0); HEMOGLOBIN 15.1 g/dl (13.5-18.0); LYMPH # 3.2 (1.2-3.4); LYMPH % 20.3 % (20.0-51.0); MEAN CELL VOLUME 99 fl (80.0-100.0); MEAN CORPUSCULAR HEMOGLOBIN 31 pg (27.0-31.0); MEAN CORPUSCULAR HGB CONC 32 g/dl (33.0-37.0); MEAN PLATELET VOLUME 11.1 fl (7.4-10.4); MONO # 0.9 (0.1-0.6); PLATELET COUNT 228 K/mm3 (130-400); RED BLOOD COUNT 4.82 M/mm3 (4.20-5.60); REDCELL DISTRIBUTION WIDTH-CV 13.4 % (11.5-14.5)
[2019-10-03 06:31] LABS: CALCIUM 9.3 mg/dL (8.4-10.2); CREATININE, serum 1.51 (0.66-1.25); POTASSIUM 4.1 mmol/L (3.4-5.0)
--- NOTE | 2019-10-03 06:31 | NUR ---
Pt made no complaints during the night. Meds administered. Urinal at bedside. Needs met. call light within reach.
--- NOTE | 2019-10-03 07:07 | NUR ---
Report given to KIM Hill.
--- NOTE | 2019-10-03 09:15 | NUR ---
Pt assessment completed and charted. Morning medications administered per OCT. Pt sitting at EOB, A&O, independent in room. Fluid restriction discussed w/ patient, who verbalized understanding. Pt on 3L NC. LH INT IV that flushes w/o difficulty. Pt walked w/ therapy. Pt denies dizziness, SOB but then states, "I don't know, my legs hurt so bad, I just don't know". Pt is cooperative but seems uninterested in cares. BLE wrapped w/ suresh wrap and 3+ edema, red, discoloration, severe discoloration to feet and toes. Pt receiving PRN norco for pain. No other concerns expressed at this time.
--- NOTE | 2019-10-03 11:09 | NUR ---
JUNG attempted to contact [facility] in regards to acceptance of HH services for patient. No answer, and so JUNG left a message for Sean to return call.
--- NOTE | 2019-10-03 17:30 | NUR ---
Pt rating leg pain 7/10, also sleeping upon entry. Pt requested PRN pain medication at dinner time, will give then.
--- NOTE | 2019-10-03 19:13 | NUR ---
Report given to KIM Curtis. Pt laying horizontal on bed, asked if he would like to be assisted to bed or the recliner, pt states he is more comfortable laying the way he is. Pt does not look comfortable. urinal placed closer to bed. [place] PRN administered.
--- NOTE | 2019-10-03 19:20 | NUR ---
Received report from Court. Seen patient lying on the bed, awake. Patient states he has shakiness on his body, still with pain on his legs and [place] was given by Court at around 1842H. With O2 at 3lpm via NC. With edema on BLE +3, covered with suresh wraps. With INT on left hand.
--- NOTE | 2019-10-03 19:30 | NUR ---
Patient complains of having loss of muscle control. He states taht he tried to stand from bed going to the sink and he felt weakness, dizziness and loss of muscle control. He states that suddenly his body was shaking. This nurse asked patient to squeeze both hands and patient was able to do it equally. Patient states he just experience all of this today and never had it few days ago.
--- NOTE | 2019-10-03 19:50 | NUR ---
This nurse informed Violeta thru phone call about patient's complains. Violeta said she will go up and check on the patient.
--- NOTE | 2019-10-03 20:00 | NUR ---
Violeta checked on the patient. Blood glucose done= 229mg/dl. Orthostatic blood pressure taken to patient, Supine= 96/53, Sitting= 94/51, Standing= 134/104.
[2019-10-03 20:56] LABS: HEMOGLOBIN 14.8 g/dl (13.5-18.0); MEAN CELL VOLUME 98 fl (80.0-100.0); MEAN CORPUSCULAR HEMOGLOBIN 32 pg (27.0-31.0); MEAN CORPUSCULAR HGB CONC 32 g/dl (33.0-37.0); MEAN PLATELET VOLUME 10.9 fl (7.4-10.4); PLATELET COUNT 218 K/mm3 (130-400); RED BLOOD COUNT 4.68 M/mm3 (4.20-5.60); REDCELL DISTRIBUTION WIDTH-CV 13.5 % (11.5-14.5)
[2019-10-03 21:09] LABS: ARTERIAL BLD GAS O2 SATURATION 95.6 % (92-100); ARTERIAL BLD GAS TCO2 CT 37.9; ARTERIAL BLOOD GAS BASE EXCESS 9.9 (-2-2); ARTERIAL BLOOD GAS HCO3 36.2 meq/L (22-26); ARTERIAL BLOOD GAS PCO2 54.5 mmHg (35-45); ARTERIAL BLOOD GAS pH 7.44 (7.35-7.45)
[2019-10-03 21:10] LABS: CALCIUM 9.4 mg/dL (8.4-10.2); CREATININE, serum 2.01 (0.66-1.25); MAGNESIUM 2.2 mg/dL (1.6-2.3); POTASSIUM 4.8 mmol/L (3.4-5.0)
[2019-10-03 21:12] LABS: LYMPHOCYTE 13 % (20.0-51.0); MYELOCYTE 1 % (0-0); NEUTROPHILS 81 % (42.0-75.2); PLATELET ESTIMATE NORMAL (NORMAL)
[2019-10-04] VITALS (7 sets, daily range): BP systolic 96–135; BP diastolic 54–110; PULSE 72–83; TEMP 97.4–97.9
--- NOTE | 2019-10-04 05:49 | NUR ---
Patient is already awake, sitting on bed. He still has some tremors noted in his hands. Patient still has some pain on his legs but refuses to have some pain medicine at the moment. Changed patient's beddings and gown. Cleaned patient with warm wipes. He states he still has some weakness upon standing. Will endorse to day shift nurse.
--- NOTE | 2019-10-04 07:10 | NUR ---
PT told this nurse that the patient verbalized that he fall on his knees at around 4am. This nurse went to patient's nurse to verify and the patient said that he did fell on his kneew when he was trying to go to the sink. This nurse checked on his knees for any injury and patient doesn't have any. Informed Dr. Navarro via phone call about the fall incident. Bed alarm turned on.
[2019-10-04 08:28] LABS: CALCIUM 9.6 mg/dL (8.4-10.2); CREATININE, serum 1.77 (0.66-1.25); POTASSIUM 4.3 mmol/L (3.4-5.0)
--- NOTE | 2019-10-04 09:33 | NUR ---
Assessment complete. Patient sitting at side of bed. States he wants to know why he is so shaky, "this is not normal, I am worse than when I came in". BLE are extremely ededamous and discolored, dark purplish red. Pedal pulses were extremely faint but refill is good. Radial pulses were not palpable due to tremors despite my efforts to relax the muscles. He complained of aching in his legs rated at a 7/8 , I will provide PRN [place] for this pain. IV site CD&I, flushed well. No further needs were expressed at this time. Call light is within reach.
--- NOTE | 2019-10-04 10:23 | NUR ---
Patient complained of aching pain in both his legs at a 7-8/10, PRN norco provided for pt.
--- NOTE | 2019-10-04 14:18 | NUR ---
Patient moved to room [address] Fernandez' request due to his fall this morning. Pt was also up trying to use urinal at the time of Dr. Navarro' entry and he suggested that he be moved closer to the jaimee. This has been done, patient is comfortable in new room.
--- NOTE | 2019-10-04 17:53 | NUR ---
Patient has had an uneventful day. Bolus of fluids was given, consulted due to the increasing tremors in his hands and feet. Pt does not like that the bed alarm is on but continues to try to get up without calling. has been at the bedside all day. Pain in his legs continues. PRN norco given as needed for pain rated at 8/10. According to other staff patient is normally more talkative than he has been today. For me he only steaks when spoken to. Seems frustrated. IV site is CD&I, was switched from left hand to his right hand this morning by KIM Wheeler. No further needs were expressed at this time. Call light is in reach.
--- NOTE | 2019-10-04 19:35 | NUR ---
PT report received from Soledad ALVAREZ. PT presents in bed resting peacefully with eyes closed with at bedside. PT presents with no s/s of pain nor distress noted. Will continue to monitor.
--- NOTE | 2019-10-04 21:10 | NUR ---
PT is non-compliant with call light and will stand up to use urinal without notifying staff that he needs to void nor requesting assistance/using call light. PT has very edematous BLE that are wrapped from the shins to his toes with suresh bandages. PT has very dark dusky toes that des with pressure. Pedal pulses unable to be assessed due to suresh wraps. PT is watching tv sitting up on side of his bed during assessment with spouse present at bedside. PT has call light within reach and beverages on bedside tray. PT was previously sleeping peacefully lying sideways across his bed. When this lyric writer and REAL ESTATE OFFICER attempted to help reposition PT he became agitated and stated that he "was not" going to fall off bed that his back hurt and he was resting in a manner that decreased his discomfort. PT is unable to have another pain pill until midnight. Will continue to monitor. No s/s of distress noted.
--- NOTE | 2019-10-04 23:53 | NUR ---
PT reports that he continues to have pain in his back and BLE and requests his PRN [place]. PT given pain medication within 1 hour administration window with his 2330 antibiotic. PT watchign tv sitting up in his bed with call light within reach and beverages on bedside table and within reach.
[2019-10-05] VITALS (7 sets, daily range): BP systolic 97–120; BP diastolic 60–84; PULSE 71–89; TEMP 97.4–99
--- NOTE | 2019-10-05 03:00 | NUR ---
PT bed alarm is active secondary to high fall risk protocol as well as PT's non compliance with using call light to ask for assistance with standing and/or ambulating. PT bed alarm goes off and this verse writer enters room to find PT sitting on the side of his bed. PT is upset and asks why the bed alarm is on and this verse writer provides education re: fall risk protocol and the importance of maintaining PT safety. PT replies that he is getting "angry" and that this is "upsetting" him. This verse writer apologizes and again explains that these protocols are simply in place to reduce the risk of potential injury to the PT. PT refuses to acknowledge education. Will continue to monitor.
[2019-10-05 06:20] LABS: CALCIUM 9.3 mg/dL (8.4-10.2); CREATININE, serum 1.97 (0.66-1.25); POTASSIUM 4.5 mmol/L (3.4-5.0)
[2019-10-05 06:21] LABS: BASO % 0.3 % (0.0-2.0); EOS # 0.1 (0.0-0.7); EOS % 0.4 % (0-4.0); GRAN # 10.4 (1.4-6.5); GRAN % 76.6 % (42.2-75.2); HEMATOCRIT 45.7 % (42.0-52.0); HEMOGLOBIN 14.7 g/dl (13.5-18.0); LYMPH # 2.2 (1.2-3.4); LYMPH % 16.1 % (20.0-51.0); MEAN CELL VOLUME 97 fl (80.0-100.0); MEAN CORPUSCULAR HEMOGLOBIN 31 pg (27.0-31.0); MEAN CORPUSCULAR HGB CONC 32 g/dl (33.0-37.0); MEAN PLATELET VOLUME 11.1 fl (7.4-10.4); MONO # 0.7 (0.1-0.6); MONO % 5.1 % (1.7-9.3); PLATELET COUNT 191 K/mm3 (130-400); REDCELL DISTRIBUTION WIDTH-CV 13.3 % (11.5-14.5)
--- NOTE | 2019-10-05 13:08 | NUR ---
Assessment complete. Patient sitting at side of bed at this time. Tremors seem to have improved a little bit since yesterday, they arent as noticable at rest but they are noticable while he is trying to perform tasks. Patient complains of BLE pain 04/04, SEDA beaver provided for this. Pt continues to be frustrated with the fact that the bed alarm is on. He told me Dr. Fernandez said the bed alarm could be turned off when they rounded on him. I verified this with Melanie and it was false. Bed alarm will stay on. I reitterated that it is for his own safety and that it will not go off if he calls us for help before he gets up and he yelled "I KNOW THAT DO YOU THINK IM STUPID". I ensured him that is not what I thought but I do not want him to fall. He got up with the walker to the restroom and had a BM. He did not wobble and knees did not buckle but he was still off balance. Iv fluids running at 75ml/hr at this time. He is also frustrated with that. Heart sounds were extremely hard to hear. Pedal pulse also very hard to palpate. No further needs were expressed at this time. Fall precautions are in place. Call light is within reach. Bed alarm set.
--- NOTE | 2019-10-05 16:16 | NUR ---
Migratory Farm Hand attended clinical rounds with the team and patient fell twice this weekend. Hospitalist discussed recommendation for SNF with patient who is now agreeable to return to [facility] in [place] for therapy. JUNG faxed updates to Jana at [facility] who advised they can accept patient. JUNG advised discharge could occur tomorrow. JUNG also notified Sean at [facility] to update on discharge plan. JUNG will follow up with Jana tomorrow morning on potential discharge.
--- NOTE | 2019-10-05 18:08 | NUR ---
Patient calmed down for the rest of the day. He seems less frustrated with his bed alarm. I removed the suresh wraps on his legs to look at the wound that came back positive for Esequielh, it is 2 very small scabbed wounds. I rewrapped is suresh bandages for him. He also has on a fresh gown at this time and sheets have been changed. His has not been present all day. He is scheduled for an MRI in the morning, the would have done it today but he has a paced and the [employer] [facility] was not here. Patient is aware of his plan of care. No further needs expressed at this time. Call light is in reach. Fall precautions in place.
--- NOTE | 2019-10-05 20:30 | NUR ---
Initial shift assessment done- Tele on, sitting at edge of bed- with patient at this time,, lower legs are wrapped- discolored-edematous. o2 at 3L/nc,IV fluids of NS at 75cc/hr,no tremors noted tonight
[2019-10-06 03:41] VITALS: BP 132/88; PULSE 70; TEMP 98
--- NOTE | 2019-10-06 05:33 | NUR ---
Did not sleep much at all last night- VSS, did get Wiggins x1 during the night for leg pain, states he might be leaving today to go back to [place]
[2019-10-06 06:16] LABS: BASO # 0.1 (0.0-0.2); BASO % 0.4 % (0.0-2.0); EOS # 0.1 (0.0-0.7); EOS % 0.5 % (0-4.0); GRAN # 9.6 (1.4-6.5); GRAN % 71.5 % (42.2-75.2); HEMATOCRIT 42.6 % (42.0-52.0); HEMOGLOBIN 13.6 g/dl (13.5-18.0); LYMPH # 2.8 (1.2-3.4); LYMPH % 20.7 % (20.0-51.0); MEAN CELL VOLUME 98 fl (80.0-100.0); MEAN CORPUSCULAR HEMOGLOBIN 31 pg (27.0-31.0); MEAN CORPUSCULAR HGB CONC 32 g/dl (33.0-37.0); MEAN PLATELET VOLUME 11.1 fl (7.4-10.4); MONO # 0.8 (0.1-0.6); MONO % 5.6 % (1.7-9.3); PLATELET COUNT 183 K/mm3 (130-400); RED BLOOD COUNT 4.36 M/mm3 (4.20-5.60); REDCELL DISTRIBUTION WIDTH-CV 13.3 % (11.5-14.5)
[2019-10-06 06:43] LABS: CREATININE, serum 1.58 (0.66-1.25); PHOSPHOROUS 3.4 mg/dL (2.5-4.5); POTASSIUM 4.4 mmol/L (3.4-5.0)
[2019-10-06] MEDS ORDERED: NEURONTIN300 MG/CAP PO (07:49)
[2019-10-06] MEDS ORDERED: SINEMET 25/101 UDTAB PO (07:52)
[2019-10-06] MEDS ORDERED: NORCO 325 MG-7.1 TAB PO (07:54)
[2019-10-06] MEDS ORDERED: KLONOPIN 1MG1 MG PO (07:54)
[2019-10-06 08:13] VITALS: BP 103/60; PULSE 70; TEMP 98.3
--- NOTE | 2019-10-06 10:00 | NUR ---
Patient resting in bedside recliner at this time. Patient is alert and oriented, answers questions appropriately. Patient reports that he has anxiety about his scheduled MRI and states that he has been unable to complete them in the past. Reported this to hospitalist, recieved an order for a one time dose of anxiety medication to be administered immediately prior to his MRI, will administer per order. Patient also reports he has had several stools today, but they were not loose. Patient denies pain or other needs, call light within reach.
[2019-10-06 10:33] VITALS: BP 106/51; PULSE 73; TEMP 97.7
--- NOTE | 2019-10-06 11:49 | NUR ---
Associate Partner attended clinical rounds with the team. Patient expressed he is not feeling well. Patient is also scheduled to have a MRI today at 1100, which has caused him anxiety in the past. Hospitalist advised patient will not discharge today, likely tomorrow. JUNG contacted Jana at [place] and provided update. JUNG to continue to follow.
[2019-10-06 15:41] VITALS: BP 122/75; PULSE 95; TEMP 97.9
--- NOTE | 2019-10-06 17:23 | NUR ---
IV site changed per 7D protocol, patient tolerated procedure well. Patient remains on 3.5L O2 via NC. Patient denies pain or needs at this time, call light within reach.
[2019-10-06 21:14] VITALS: BP 134/61; PULSE 75; TEMP 97.6
[2019-10-06 23:54] VITALS: BP 80/56; PULSE 72; TEMP 98.2
[2019-10-07 04:50] VITALS: BP 125/81; PULSE 74; TEMP 97.9
--- NOTE | 2019-10-07 05:57 | NUR ---
Pt has had an eventful night. At the beginning of the night, the pt had some nausea and overall just did not feel good. Dr. Hammer came in to discuss the MRI results, and told pt that he did see two spots that resemble Strokes, he continued that he would like to have an MRA of the head and neck without contrast d/t CVA to r/o vertebral or basilar occlusion. This will take place around 0800. Pt stated "I'm afraid to go to sleep, because I'm afraid I won't wake up." Pt then received clonazepam for anxiety. The pt has slept most of the night, although did have some moments when he woke up with confusion. The pt is currently sleeping, awaiting Radiology for the MRA of head and neck.
[2019-10-07 06:46] LABS: CALCIUM 9.2 mg/dL (8.4-10.2); CREATININE, serum 1.3 (0.66-1.25); POTASSIUM 4.5 mmol/L (3.4-5.0)
[2019-10-07 07:45] VITALS: BP 148/73; PULSE 71; TEMP 97.9
[2019-10-07 11:15] VITALS: BP 129/72; PULSE 70; TEMP 96.2
[2019-10-07 16:07] VITALS: BP 117/55; PULSE 79; TEMP 97.5
--- NOTE | 2019-10-07 16:44 | NUR ---
Personal Development Coach spoke with ANITHA Lake who advised patient will not discharge today. JUNG contacted Jana at [facility] and faxed updates. SW to continue to follow.
--- NOTE | 2019-10-07 17:25 | NUR ---
Pt has slept almost all day. he seems very unmotivated today. He stated this morning "I don't know I am just so tired". We was cooperative and easily arousable but has slept 90% of the day, denied PT. When I inquired about pain he stated that he was fine, rated it at a 7 but did not want any pain medication. called earlier for an update due to concern because he was confused last night. Pt has not been confused today. We was A&O x4 when I assessed him. IV site is CD&I. No fluids running at this time. Fall precautions are in place. Call light is in reach.
--- NOTE | 2019-10-07 19:00 | NUR ---
Received report from Soledad. Patient is awake, sitting on bed. With INT on left forearm. Patient states he just wanted to urinate. Denies any pain. On O2 at 3lpm via NC.
[2019-10-07 22:22] VITALS: BP 147/98; PULSE 70; TEMP 97.5
[2019-10-08] VITALS (8 sets, daily range): BP systolic 107–152; BP diastolic 56–88; PULSE 67–78; TEMP 97–98.5
--- NOTE | 2019-10-08 06:14 | NUR ---
Patient has been awake most of the time, he has been sitting on the bed. Denies any pain. Will endorse to day shift nurse.
--- NOTE | 2019-10-08 11:30 | NUR ---
Pt reports not feeling comfortable with doing MRI without medication first. PRN anxiety medication administered just before pt taken down.
--- NOTE | 2019-10-08 11:36 | NUR ---
Pt to MRI for testing via WC.
--- NOTE | 2019-10-08 12:48 | NUR ---
Report given to KIM Calderon.
[2019-10-08] MEDS ORDERED: ELIQUIS 5MG PO (12:56)
[2019-10-08] MEDS ORDERED: LIPITOR 80MG80 MG PO (12:57)
--- NOTE | 2019-10-08 13:54 | NUR ---
Primary nurse was assist with [phone] patient care by [employer] student Rafat Hall and [facility] instructor Estrella Drake RN-.
[2019-10-08 15:14] LABS: BASO # 0.1 (0.0-0.2); BASO % 0.4 % (0.0-2.0); EOS # 0.1 (0.0-0.7); EOS % 1.2 % (0-4.0); GRAN # 7.6 (1.4-6.5); GRAN % 67.4 % (42.2-75.2); HEMATOCRIT 46.5 % (42.0-52.0); HEMOGLOBIN 14.9 g/dl (13.5-18.0); LYMPH # 2.6 (1.2-3.4); MEAN CELL VOLUME 98 fl (80.0-100.0); MEAN CORPUSCULAR HEMOGLOBIN 32 pg (27.0-31.0); MEAN CORPUSCULAR HGB CONC 32 g/dl (33.0-37.0); MEAN PLATELET VOLUME 11.1 fl (7.4-10.4); MONO # 0.7 (0.1-0.6); MONO % 6.6 % (1.7-9.3); PLATELET COUNT 173 K/mm3 (130-400); RED BLOOD COUNT 4.73 M/mm3 (4.20-5.60); REDCELL DISTRIBUTION WIDTH-CV 13.4 % (11.5-14.5)
[2019-10-08 15:27] LABS: CALCIUM 9.5 mg/dL (8.4-10.2); CREATININE, serum 1.48 (0.66-1.25); POTASSIUM 4.3 mmol/L (3.4-5.0)
--- NOTE | 2019-10-08 17:31 | NUR ---
Reel Cutter spoke with Aleksandra who advised patient could discharge today pending MRA scan. JUNG provided update to Jana, Sock Lining Examiner at [facility] who reported they could accept after results from the scan were obtained and patient was cleared for discharge. Aleksandra followed up with JUNG about scan results. JUNG contacted Jana who collaborated with [facility]'s DON. Jana advised they could accept tomorrow and tentatively scheduled transportation for 1000. JUNG to continue to follow.
--- NOTE | 2019-10-08 18:30 | NUR ---
Received report from Yumiko. Seen patient sitting in the recliner, eating his dinner. Patient denies any pain. With INT on left forearm. Patient is alert and oriented. Will continue to monitor.
--- NOTE | 2019-10-08 18:37 | NUR ---
Patient sitting in recliner. A&O. Reporting pain in BLE, no pain medication requested. VSS. IV CDI. Chair alarm on. Call light within reach. No further needs expressed from patient
[2019-10-09 03:42] VITALS: BP 96/57; PULSE 70; TEMP 97.5
--- NOTE | 2019-10-09 06:26 | NUR ---
Patient had an uneventful night. Patient denies any pain. He is currently sleeping in the recliner. Will endorse to day shift nurse.
[2019-10-09 08:19] VITALS: BP 131/54; PULSE 72; TEMP 97.5
[2019-10-09] MEDS ORDERED: BUMEX0.5 MG PO (09:15)
--- NOTE | 2019-10-09 10:21 | NUR ---
Access Developer attended clinical rounds with the team and patient to discharge to [facility] today. SW contacted [facility] at [facility] and established transportation for 1300. SW advised patient on oxygen. SW presented and explained IM form to patient who verbalized understanding and provided signature. JUNG placed form on chart. Patient agreeable to discharge to [facility]. JUNG contacted patient's and provided update on discharge. JUNG faxed discharge orders to [facility] at [facility]. No additional needs at this time.
[2019-10-09 12:17] VITALS: BP 106/58; PULSE 70; TEMP 97.9
[2019-10-09 12:28] VITALS: BP 106/58; PULSE 70; TEMP 97.9
--- NOTE | 2019-10-09 13:51 | NUR ---
Primary nurse was assisted with [id number] patient care by [employer] AD[employer] student Rafat Hall and [facility] [employer] [employer] instructor Estrella Drake RN-BC.
--- NOTE | 2019-10-09 14:06 | NUR ---
patient transferring to [facility], I have called and given report to receiving nurse, IV and tele removed
== END 2019-10-09 14:06 | DRG 291 ==
LOC: COL.ER 11:48 → MEDICAL 13:29
PROVIDERS: Nurse Practitioner Family; Physician Assistant; ADMIT Hospitalist
DX: I13.0 Hypertensive heart and chronic kidney disease with heart failure and stage 1 through stage 4 chronic kidney disease, or unspecified chronic kidney disease (principal); J96.21 Acute and chronic respiratory failure with hypoxia; I50.33 Acute on chronic diastolic (congestive) heart failure; Z68.41 Body mass index [BMI] 40.0-44.9, adult; L03.119 Cellulitis of unspecified part of limb; J44.9 Chronic obstructive pulmonary disease, unspecified; F17.210 Nicotine dependence, cigarettes, uncomplicated; I48.91 Unspecified atrial fibrillation; I73.9 Peripheral vascular disease, unspecified; I42.8 Other cardiomyopathies; I25.10 Atherosclerotic heart disease of native coronary artery without angina pectoris; G62.9 Polyneuropathy, unspecified; G20 Parkinson's disease; E66.01 Morbid (severe) obesity due to excess calories; K21.9 Gastro-esophageal reflux disease without esophagitis; N18.9 Chronic kidney disease, unspecified; R26.9 Unspecified abnormalities of gait and mobility; G89.29 Other chronic pain; R53.81 Other malaise; Z79.82 Long term (current) use of aspirin; Z79.1 Long term (current) use of non-steroidal anti-inflammatories (NSAID); Z79.52 Long term (current) use of systemic steroids; Z95.0 Presence of cardiac pacemaker; Z86.73 Personal history of transient ischemic attack (TIA), and cerebral infarction without residual deficits; Z88.8 Allergy status to other drugs, medicaments and biological substances
CPT/HCPCS: 99223-AI; 99231-AI; 99232-AI; 99233-AI; 99239; A4216; J0696; J1644; J1650; J1940; J2060; J2550; J7030; J7040; J7512

== ENCOUNTER → 2020-06-14 | Outpatient (CLI) | payer MEDICARE, OTHER ==
[~2020-06-14] MED LIST changes: +ALBUTEROL SULFAT4 M1 PO; +BUMEX0.5 MG PO; +DULCOLAX STOOL100 MG PO; +KLONOPIN 1MG1 MG PO; +LIDODERM 5% PATC1 EA TP; +LIPITOR 80MG80 MG PO; +MUCINEX 60600 MG/TA1 PO; +MYLANTA 150 ML150 M1 PO; +NEURONTIN300 MG/CAP PO; +NORCO 325 MG-7.1 TAB PO; +RT ADVAIR 228 DISKUS IH; +SINEMET 25/101 UDTAB PO; +SPIRIVA RESPIMAT4 GM IH; +THERA-M W/MINER1 TAB PO; +TYLENOL 500MG500 MG PO; +ZESTRIL 5MG5 MG PO
== END ==
LOC: MHCPAIN 10:52
DX: M47.817 Spondylosis without myelopathy or radiculopathy, lumbosacral region (principal); M54.5 Low back pain; M53.3 Sacrococcygeal disorders, not elsewhere classified; G89.29 Other chronic pain; F17.210 Nicotine dependence, cigarettes, uncomplicated
CPT/HCPCS: G0463

== ENCOUNTER → 2021-06-22 | Outpatient (CLI) | payer MEDICARE, OTHER ==
[2021-06-22 13:45] LABS: ALBUMIN 3.4 gm/dL (3.4-4.8); BILIRUBIN,TOTAL 0.7 mg/dL (0.2-1.2); CALCIUM 9.2 mg/dL (8.4-10.2); CREATININE, serum 1.19 mg/dL (0.72-1.25); POTASSIUM 3.8 mmol/L (3.5-4.5); TOTAL PROTEIN 7.5 gm/dL (6.2-8.1)
[2021-06-22 13:52] LABS: TROPONIN-I 0.015 ng/mL (0.00-0.033)
[2021-06-22 14:10] LABS: BILIRUBIN,DIRECT 0.3 mg/dL (0.0-0.5)
== END ==
LOC: ZCOL.LAB 12:07
DX: I48.0 Paroxysmal atrial fibrillation (principal); Z92.29 Personal history of other drug therapy